=== PATIENT | female | born 1995 | race Hispanic/Latino ===

== ENCOUNTER 2017-08-31 11:55 | Outpatient (CLI) | payer OTHER ==
[2017-08-31] MEDS ORDERED: LACTATED RINGERS 500 ML IV ONE (12:23)
[2017-08-31 12:27] VITALS: BP 108/55
== END 2017-08-31 13:15 | disposition home or self-care (01) ==
LOC: TRG 11:55
PROVIDERS: ATTEND Obstetrics & Gynecology
DX: O47.02 False labor before 37 completed weeks of gestation, second trimester (principal); Z3A.26 26 weeks gestation of pregnancy; O99.332 Smoking (tobacco) complicating pregnancy, second trimester
CPT/HCPCS: 59025

== ENCOUNTER 2017-10-17 12:02 | Outpatient (CLI) | payer OTHER ==
[2017-10-17] MEDS ORDERED: LACTATED RINGERS 1,000 ML ONE (12:40)
[2017-10-17] MEDS ORDERED: ZOFRAN ONE (12:41)
[2017-10-17] MEDS ORDERED: ZOFRAN IM ONE (13:24)
[2017-10-17 13:41] LABS: Bilirubin,Urine NEG (Negative); Blood,Urine SM (Negative); Color,Urine Yellow (Yellow); Mucus,Urine FEW /HPF; Protein,Urine <15 mg/dL mg/dL (Negative); Urobilinogen,Urine < 2.0 mg/dL (<2.0)
[2017-10-17] MEDS ORDERED: LACTATED RINGERS 500 ML IV ONE (14:17)
== END 2017-10-17 14:28 | disposition home or self-care (01) ==
LOC: TRG 12:02
PROVIDERS: ATTEND Obstetrics & Gynecology
DX: O47.03 False labor before 37 completed weeks of gestation, third trimester (principal); Z3A.33 33 weeks gestation of pregnancy
CPT/HCPCS: 59025; 81001; J2405; J7120

== ENCOUNTER 2017-11-23 03:41 | Outpatient (CLI) | payer OTHER ==
[2017-11-23 04:12] VITALS: BP 104/59
[2017-11-23] MEDS ORDERED: LACTATED RINGERS 1,000 ML IV ONE (05:01)
[2017-11-23] MEDS ORDERED: LACTATED RINGERS 1,000 ML ONE (05:06)
--- NOTE | 2017-11-23 06:02 | Ultrasound Report ---
FINAL REPORT EXAM: US OB LIMITED HISTORY: leaking fluid TECHNIQUE: A limited OB sonogram was obtained for evaluation of the amniotic fluid index. FINDINGS: The AMBER is 14.8 cm which is normal. The heart rate is 143 BPM. IMPRESSION: Normal AMBER of 14.8 cm. The heart rate is 143 BPM.
[2017-11-23 06:15] LABS: Amorphous Crystals,Urine 1+; Bilirubin,Urine NEG (Negative); Blood,Urine SM (Negative); Color,Urine Yellow (Yellow); Mucus,Urine FEW /HPF; Protein,Urine <15 mg/dL mg/dL (Negative); Urobilinogen,Urine < 2.0 mg/dL (<2.0)
[2017-11-23 06:20] LABS: Amphetamine Screen,Urine PRESUMPTIVE NEGATIVE; Benzodiazepines Screen,Urine PRESUMPTIVE NEGATIVE; Cocaine Screen,Urine PRESUMPTIVE NEGATIVE; Methadone Screen,Urine PRESUMPTIVE NEGATIVE; Opiate Screen,Urine PRESUMPTIVE NEGATIVE
[2017-11-23 07:27] LABS: Cannabinoid Screen,Urine PRESUMPTIVE POSITIVE
== END 2017-11-23 07:11 | disposition home or self-care (01) ==
LOC: TRG 03:41
PROVIDERS: ATTEND Obstetrics & Gynecology
DX: O47.1 False labor at or after 37 completed weeks of gestation (principal); O99.333 Smoking (tobacco) complicating pregnancy, third trimester; F17.210 Nicotine dependence, cigarettes, uncomplicated; Z3A.38 38 weeks gestation of pregnancy
CPT/HCPCS: 59025; 76815; 80307; 81001; 96360; J7120